=== PATIENT | male | born 1960 | race Caucasian/White ===

== ENCOUNTER 2018-05-03 15:52 | Inpatient (IN) | payer OTHER ==
[2018-05-03] MEDS ORDERED: ONDANSETRON HCL 4 MG/2 ML SOL IV ONE (16:12)
[2018-05-03] MEDS ORDERED: ONDANSETRON HCL 4 MG/2 ML SOL ONE ×2 (16:13→18:25)
[2018-05-03] MEDS: SODIUM CHLORIDE 0.9% FLUSH 10 ML SOL IV PRN (16:16)
[2018-05-03] MEDS ORDERED: HYDROMORPHONE 1 MG/ML SYRINGE IV ONE (16:26)
[2018-05-03] MEDS ORDERED: LACTATED RINGERS 1,000 ML IV ONE (16:27)
[2018-05-03] MEDS ORDERED: HYDROMORPHONE 1 MG/ML SYRINGE ONE (16:41)
[2018-05-03 16:51] LABS: HEMATOCRIT 55 % (39-53); HEMOGLOBIN 16.8 gm/dl (13.5-17.7); MEAN CORPUSCULAR HEMOGLOBIN 26.6 pg (27.0-32.0); MEAN CORPUSCULAR HGB CONC 30.8 gm/dl (32.0-36.0); MEAN CORPUSCULAR VOLUME 86 fL (80-100)
[2018-05-03 16:52] LABS: LACTIC ACID 2.1 mMol/L (0.0-2.0)
[2018-05-03 17:05] LABS: ALBUMIN 3.7 gm/dl (3.4-5.0); BILIRUBIN,TOTAL 0.8 mg/dl (0.2-1.0); CALCIUM 9.6 mg/dl (8.5-10.1); CARBON DIOXIDE 23.9 mEq/L (21-32); CREATININE 1.11 mg/dl (0.80-1.30); POTASSIUM 3.9 mMol/L (3.5-5.1); TOTAL PROTEIN 8.8 gm/dl (6.4-8.2)
[2018-05-03 17:07] LABS: BAND NEUTROPHILS % (MANUAL) 5 %; BASOPHILS % (MANUAL) 1 % (0-3); EOSINOPHILS % (MANUAL) 1 % (0-9); LYMPHOCYTES % (MANUAL) 7 % (10-50); MONOCYTES % (MANUAL) 1 % (0-12); NEUTROPHILS % (MANUAL) 85 % (37-80); NORMAL RBCS PRESENT
[2018-05-03 18:18] LABS: APPEARANCE,URINE Clear; BILIRUBIN,URINE NEGATIVE (NEGATIVE); COLOR,URINE Yellow; GLUCOSE, URINE (UA) 3+ (NEGATIVE); KETONES,URINE 2+ (NEGATIVE); LEUKOCYTE ESTERASE ,URINE NEGATIVE (NEGATIVE); NITRATE,URINE NEGATIVE (NEGATIVE); OCCULT BLOOD,URINE 1+ (NEG-TRACE); PH,URINE 7.5; UROBILINOGEN,URINE 0.2 (0.2-1.0 EU)
[2018-05-03] MEDS ORDERED: ONDANSETRON HCL 4 MG/2 ML SOL IV PRN (18:21)
[2018-05-03 18:27] LABS: BACTERIA 1+ (< 1+); CRYSTALS NEGATIVE (0-3 AVE/HPF)
[2018-05-03] MEDS: ONDANSETRON HCL 4 MG/2 ML SOL IV PRN (18:28)
[2018-05-03] MEDS: DEXTROSE/SALINE 0.45/KCL 20MEQ 1,000 ML/1,000 ML SOL IV SCH (18:55)
[2018-05-03] MEDS: ENOXAPARIN 100 MG SOL SC SCH (18:56)
[2018-05-03] MEDS: HYDROMORPHONE 1 MG/ML SYRINGE IV PRN ×2 (18:57→20:52)
[2018-05-03] MEDS: HUMALOG PEN 100 U/ML SC SCH (20:58)
[2018-05-03] MEDS: PRAVASTATIN SODIUM 20 MG TAB PO SCH (21:00)
[2018-05-03] MEDS: LISINOPRIL 20 MG TAB PO SCH (21:01)
[2018-05-04] MEDS: HYDROMORPHONE 1 MG/ML SYRINGE IV PRN ×6 (00:46→21:18)
[2018-05-04] MEDS: DEXTROSE/SALINE 0.45/KCL 20MEQ 1,000 ML/1,000 ML SOL IV SCH ×3 (03:42→19:28)
[2018-05-04] MEDS: ENOXAPARIN 100 MG SOL SC SCH ×2 (06:33→18:52)
[2018-05-04] MEDS: ONDANSETRON HCL 4 MG/2 ML SOL IV PRN ×2 (06:49→21:28)
[2018-05-04 09:05] LABS: CALCIUM 9.3 mg/dl (8.5-10.1); CREATININE 1.08 mg/dl (0.80-1.30); POTASSIUM 4.3 mMol/L (3.5-5.1)
[2018-05-04] MEDS: ASPIRIN EC 81 MG PO SCH (09:59)
[2018-05-04] MEDS: MONTELUKAST SODIUM 10 MG TAB PO SCH (09:59)
[2018-05-04] MEDS: HUMALOG PEN 100 U/ML SC SCH ×4 (10:00→21:35)
[2018-05-04] MEDS: SODIUM CHLORIDE 0.9% FLUSH 10 ML SOL IV PRN (12:37)
[2018-05-04] MEDS: VENLAFAXINE ER 37.5 MG CAPSULE PO SCH (13:35)
[2018-05-04] MEDS: PRAVASTATIN SODIUM 20 MG TAB PO SCH (21:07)
[2018-05-04] MEDS: LISINOPRIL 20 MG TAB PO SCH (21:07)
[2018-05-04 22:08] LABS: BASOPHILS % (AUTO) 0 % (0-3); EOSINOPHILS % (AUTO) 2 % (0-9); HEMATOCRIT 49 % (39-53); HEMOGLOBIN 15.1 gm/dl (13.5-17.7); LYMPHOCYTES % (AUTO) 17.2 % (10-50); MEAN CORPUSCULAR HEMOGLOBIN 27.3 pg (27.0-32.0); MEAN CORPUSCULAR HGB CONC 30.9 gm/dl (32.0-36.0); MEAN CORPUSCULAR VOLUME 88 fL (80-100); NEUTROPHILS % (AUTO) 74.4 % (37-80)
[2018-05-05] MEDS: HYDROMORPHONE 1 MG/ML SYRINGE IV PRN ×4 (00:28→11:40)
[2018-05-05 00:34] VITALS: O2SAT 96
[2018-05-05] MEDS: DEXTROSE/SALINE 0.45/KCL 20MEQ 1,000 ML/1,000 ML SOL IV SCH ×2 (03:25→11:40)
[2018-05-05] MEDS: ENOXAPARIN 100 MG SOL SC SCH (06:44)
[2018-05-05 08:29] VITALS: BP 171/88; PULSE 74; RESP 18; TEMP 96.4
[2018-05-05] MEDS: HUMALOG PEN 100 U/ML SC SCH ×2 (08:41→12:22)
[2018-05-05] MEDS: MONTELUKAST SODIUM 10 MG TAB PO SCH (09:30)
[2018-05-05] MEDS: VENLAFAXINE ER 37.5 MG CAPSULE PO SCH (09:31)
[2018-05-05] MEDS: ASPIRIN EC 81 MG PO SCH (10:39)
== END 2018-05-05 12:30 | disposition short-term general hospital (02) | DRG 390 ==
LOC: ED 15:52 → ACUTE CARE 18:02 → UNDOADMIN 18:02 → ACUTE CARE 18:40
PROVIDERS: ADMIT Family Medicine; ATTEND Family Medicine
DX: K56.600 Partial intestinal obstruction, unspecified as to cause (principal); E11.9 Type 2 diabetes mellitus without complications; R14.0 Abdominal distension (gaseous); K43.9 Ventral hernia without obstruction or gangrene
CPT/HCPCS: 36415; 71045; 74177; 80048; 80053; 81001; 82150; 82272; 82962; 85007; 85025; 85027; 87088; 96365; 96366; 96374; 96375; 99223; 99231; 99285; J1650; J1815; J2405; Q9967; A9270-GY; J1170